=== PATIENT | male | born 1955 | race Caucasian/White ===

== ENCOUNTER → 2019-12-23 | Outpatient (CLI) | payer OTHER ==
[~2019-12-23] MED LIST: ASPI-496 PO; LISI-167 PO; METF500T17 PO; ROSU20TA2 PO
== END | disposition home or self-care (01) ==
LOC: CFH 10:48
PROVIDERS: ATTEND Internal Medicine Cardiovascular Disease
DX: I08.1 Rheumatic disorders of both mitral and tricuspid valves (principal)
CPT/HCPCS: 93306; 93356

== ENCOUNTER 2019-12-24 08:23 | Day surgery (SDC) | payer OTHER ==
[~2019-12-24] VITALS: Ht 180.3 cm; Wt 102.3 kg
[2019-12-24] MEDS ORDERED: SODIUM CHLORIDE 0.9% 1,000 ML IV SCH ×2 (08:55→11:00)
[2019-12-24 08:57] VITALS: BP 117/64
[2019-12-24] MEDS ORDERED: ASPIRIN 325 MG TABLET EC PO ONE (09:00)
[2019-12-24] MEDS ORDERED: LISI-167 PO (09:09)
[2019-12-24] MEDS ORDERED: METF500T17 PO (09:09)
[2019-12-24] MEDS ORDERED: ROSU20TA2 PO (09:09)
[2019-12-24] MEDS ORDERED: ASPI-496 PO (09:09)
[2019-12-24] MEDS ORDERED: NITROGLYCERIN 5 MG/ML, 10ML ONE (09:42)
[2019-12-24] MEDS ORDERED: TICAGRELOR 90 MG TABLET ONE (09:42)
[2019-12-24] MEDS ORDERED: MIDAZOLAM 1 MG/ML, 5ML ONE (09:42)
[2019-12-24] MEDS ORDERED: LIDOCAINE 2%, 20ML ONE (09:42)
[2019-12-24] MEDS ORDERED: VERAPAMIL 2.5 MG/ML, 2ML ONE (09:42)
[2019-12-24] MEDS ORDERED: HEPARIN 1,000 UNITS/ML, 10ML ONE (09:42)
[2019-12-24] MEDS ORDERED: BIVALIRUDIN 250 MG ONE (09:42)
[2019-12-24] MEDS ORDERED: FENTANYL PF 100 MCG/2ML ONE (09:42)
== END 2019-12-24 14:16 | disposition home or self-care (01) ==
LOC: CACL 08:23
PROVIDERS: ATTEND Internal Medicine Cardiovascular Disease
DX: I47.2 Ventricular tachycardia (principal); I25.10 Atherosclerotic heart disease of native coronary artery without angina pectoris; I25.83 Coronary atherosclerosis due to lipid rich plaque; E11.22 Type 2 diabetes mellitus with diabetic chronic kidney disease; N18.9 Chronic kidney disease, unspecified; E78.2 Mixed hyperlipidemia; Z79.82 Long term (current) use of aspirin; Z79.84 Long term (current) use of oral hypoglycemic drugs; Z79.899 Other long term (current) drug therapy
CPT/HCPCS: 93458; 99156; 99157; C1769; C1894; J1644; J2250; J3010; Q9967; J0583